=== PATIENT | female | born 1985 | race Two or more races ===

== ENCOUNTER 2023-04-14 00:57 | Emergency (ER) | payer BC ==
[~2023-04-14] VITALS: Ht 160 cm; Wt 70.3 kg
[2023-04-14] MEDS ORDERED: KETO10TA2 PO (03:29)
== END 2023-04-14 04:48 ==
LOC: ER 00:57
DX: S92.911A Unspecified fracture of right toe(s), initial encounter for closed fracture (principal); S93.691A Other sprain of right foot, initial encounter; X50.9XXA Other and unspecified overexertion or strenuous movements or postures, initial encounter; Y93.89 Activity, other specified; Y92.89 Other specified places as the place of occurrence of the external cause